=== PATIENT | female | born 1960 | race African-American/Black ===

== ENCOUNTER → 2017-06-02 | Outpatient (CLI) | payer MEDICAID ==
--- NOTE | 2017-06-02 10:23 | RADIOLOGY REPORT (SQ) ---
EXAM DESCRIPTION: MRI HEAD COMBO COMPLETED DATE/TIME: 06/02/2017 9:26 am REASON FOR STUDY: MS ([id number]) G35 MULTIPLE SCLEROSIS COMPARISON: None. TECHNIQUE: Multiplanar imaging includes noncontrasted T1, T2, FLAIR, diffusion with ADC map and post gadolinium contrast T1 sequences. Images stored on PACS. CONTRAST TYPE AND DOSE: 10 mL MultiHance RENAL FUNCTION: GFR > 60. LIMITATIONS: None. FINDINGS: ANATOMY: No anomalies. Normal vascular flow voids. Pituitary fossa normal. CSF SPACES: Normal in size and contour. No hemorrhage. CEREBRUM: Sulci and gyri normal in size and contour. There are a few scattered focal areas of abnorm al signal intensity in the periventricular white matter on the FLAIR sequence which could represent s mall vessel ischemic changes although the possibility of a demyelinating process cannot be excluded. No evidence of hemorrhage, mass, or extraaxial fluid collection. No abnormal enhancement post contras t. POSTERIOR FOSSA: No signal alteration. No hemorrhage. No edema, masses, or mass effect. Internal gwendolyn tory canals, cerebellopontine angles, mastoids normal. No enhancing lesions. No abnormal enhancement post contrast. DIFFUSION IMAGING: Negative for acute or subacute infarction. ORBITS: No masses. Globes normal. PARANASAL SINUSES: No fluid levels. Mucosa normal. OTHER: No other significant finding. IMPRESSION: There are a few scattered focal areas of abnormal signal intensity in the periventricula r white matter on the FLAIR sequence which could represent small vessel ischemic changes although the possibility of a demyelinating process cannot be excluded. Clinical correlation is recommended. No other significant intracranial abnormalities were identified. Other findings as noted above EVIDENCE OF ACUTE STROKE: NO. TECHNICAL DOCUMENTATION: JOB ID: [id number] [employer]- All Rights Reserved Reading location - IP/workstation name: [email or web address]
== END ==
LOC: RAD 08:04
PROVIDERS: ATTEND Specialist
DX: G35 Multiple sclerosis (principal)
CPT/HCPCS: 82565; 70553; A9577